=== PATIENT | female | born 1990 | race Caucasian/White ===

== ENCOUNTER 2019-01-04 01:34 | Emergency (ER) | payer BC ==
[~2019-01-04] VITALS: Ht 162.6 cm; Wt 113.4 kg
[2019-01-04 01:40] VITALS: BP 154/98
== END 2019-01-04 02:06 | disposition home or self-care (01) ==
LOC: ER 01:43
DX: N75.0 Cyst of Bartholin's gland (principal); E28.2 Polycystic ovarian syndrome